=== PATIENT | female | born 1980 | race Caucasian/White ===

== ENCOUNTER → 2021-04-17 13:39 | Outpatient (CLI) | payer OTHER, SELFPAY ==
--- NOTE | ~2021-04-17 | XR_ITS ---
XR lumbar spine 2-3V DATE: 04/17/2021 14:04 INDICATION: Lumbar radiculopathy TECHNIQUE: AP, lateral, coned lateral lumbosacral views COMPARISON: None FINDINGS: There is slight levoscoliosis. No fracture or bone destruction. The lumbar pedicles are intact. There is mild loss of interspace hei ght at the mid and lower lumbar spine no spondylolisthesis. The sacroiliac joints are unremarkable. Status post cholecystectomy IMPRESSION: Slight levoscoliosis Mild degenerative disc disease Reviewed, dictated and finalized at location A.
== END ==
PROVIDERS: PCP Internal Medicine; Visit Provider Internal Medicine
DX: M54.16 Radiculopathy, lumbar region (principal); M51.36 Other intervertebral disc degeneration, lumbar region
CPT/HCPCS: 72100

== ENCOUNTER → 2022-02-09 08:14 | Outpatient (CLI) | payer OTHER, SELFPAY ==
--- NOTE | ~2022-02-09 | MM_ITS ---
EXAMINATION: MM diagnostic demar BI w corey HISTORY: Itching of the medial breasts TECHNIQUE: Craniocaudal, mediolateral, and mediolateral oblique 3-D tomosynthesis images of the breas ts were performed and synthetic 2-D images were generated. CAD analysis was submitted and interpreted . COMPARISON: 06/15/2019, 05/31/2019, 02/17/2015,01/30/2015 BREAST PARENCHYMAL COMPOSITION: The breasts are heterogeneously dense, which may obscure small masses . FINDINGS: There is no suspicious mass, calcification, or architectural distortion in either breast t o suggest malignancy. There has been no suspicious interval change. No mammographic correlate is sergei ntified for the reported itching of the breasts. IMPRESSION: 1. No specific mammographic correlate is identified for the itching of the patient's breasts. Further evaluation at this time should be based on clinical assessment. Continued follow-up physical examina tion is recommended. 2. Recommend routine screening mammography in one year. BI-RADS Category 1: Negative Reviewed, dictated and finalized at location A. IMPRESSION: 1. No specific mammographic correlate is identified for the itching of the simone ent's breasts. Further evaluation at this time should be based on clinical asse ssment. Continued follow-up physical examination is recommended. 2. Recommend routine screening mammography in one year. BI-RADS Category 1: Negative
== END ==
PROVIDERS: PCP Internal Medicine; Visit Provider Obstetrics & Gynecology Gynecology
DX: N64.59 Other signs and symptoms in breast (principal)
CPT/HCPCS: 77062; 77066; G0279

== ENCOUNTER → 2022-05-27 08:24 | Outpatient (CLI) | payer OTHER, SELFPAY ==
--- NOTE | ~2022-05-27 | CT_ITS ---
EXAMINATION: CT sinus wo con DATE: 05/27/2022 08:41 INDICATION: Sinusitis TECHNIQUE: Computed tomography (CT) of the paranasal sinuses was performed without intravenous contra st. The dose-length product was 265.85 mGy-cm. Automated exposure control and iterative reconstruction technique were employed. COMPARISON: CT dated 05/25/2012 FINDINGS: There is no significant mucosal thickening. No air-fluid levels. Rightward nasal septal dev iation. Ostiomeatal units are patent. Mastoids are pneumatized. IMPRESSION: 1. No significant sinus disease. Reviewed, dictated and finalized at location B.
== END ==
PROVIDERS: PCP Internal Medicine; Visit Provider Internal Medicine
DX: J34.89 Other specified disorders of nose and nasal sinuses (principal)
CPT/HCPCS: 70486

== ENCOUNTER → 2022-07-22 11:17 | Outpatient (CLI) | payer OTHER, SELFPAY ==
--- NOTE | ~2022-07-22 | MR_ITS ---
MRI of the lumbar spine Clinical History: Back pain Technique: Axial T2-weighted images, and sagittal T1-weighted, T2-weighted, and T2 fat-sat images wer e acquired. Findings: There is no fracture or subluxation of the lumbar spine. Vertebral bodies maintain normal h eight and alignment. No focal bone marrow signal abnormality seen. At L1-L2, there is no disc bulge or herniation. No spinal canal stenosis or neural foraminal narrowin g. At L2-L3, there is no disc bulge or herniation. No spinal canal stenosis or neural foraminal narrowin g. At L3-L4, there is minimal disc bulge. There is minimal facet joint degenerative change. There is min imal compression of the thecal sac at this level. Bilateral neural foramina are preserved. At L4-L5, there is minimal disc bulge with facet arthropathy. There is moderate to severe thecal sac compression. Right neural foramen is moderately narrowed. Left neural foramen preserved. At L5-S1, there is minimal disc bulge with mild facet arthropathy. No definite spinal canal stenosis or neural foraminal narrowing. Paravertebral soft tissues are unremarkable. Impression: Multifactorial moderate to severe thecal sac compression at L4-L5, with moderate right neural foramin al narrowing. Multifactorial minimal thecal sac compression at L3-L4. Reviewed, dictated and finalized at location . [facility] Impression: Multifactorial moderate to severe thecal sac compression at L4-L5, with moderat e right neural foraminal narrowing. Multifactorial minimal thecal sac compression at L3-L4.
== END ==
PROVIDERS: PCP Internal Medicine; Visit Provider Internal Medicine
DX: M54.50 Low back pain, unspecified (principal); M48.56XA Collapsed vertebra, not elsewhere classified, lumbar region, initial encounter for fracture
CPT/HCPCS: 72148

== ENCOUNTER 2024-09-29 11:56 | Outpatient (CLI) | payer OTHER, SELFPAY | END 2024-09-29 11:57 | disposition home or self-care (01) | PROVIDERS: PCP Nurse Practitioner; Visit Provider Nurse Practitioner | DX: M54.41 Lumbago with sciatica, right side (principal); M47.896 Other spondylosis, lumbar region; G89.29 Other chronic pain; M79.645 Pain in left finger(s) | CPT/HCPCS: 72100; 73130 ==

== ENCOUNTER 2025-02-27 13:32 | Outpatient (CLI) | payer OTHER, SELFPAY ==
--- NOTE | ~2025-02-27 | MM_ITS ---
EXAMINATION: MM screening demar BI w corey HISTORY: Screening TECHNIQUE: Craniocaudal and mediolateral oblique 3-D tomosynthesis images were obtained and synthetic 2-D images were generated. CAD analysis was submitted and interpreted. COMPARISON: Comparison to multiple prior studies sequentially, with oldest reviewed study dated 05/03. BREAST PARENCHYMAL COMPOSITION: Dense: The breasts are heterogeneously dense, which may obscure small masses FINDINGS: There is no evidence of suspicious mass, calcification, or architectural distortion to sugg est malignancy in either breast. There has been no suspicious interval change. IMPRESSION: 1. No mammographic evidence of malignancy. 2. Recommend routine screening mammography in one year. BI-RADS Category 1: Negative Reviewed, dictated and finalized at location B.
== END 2025-02-27 13:33 | disposition home or self-care (01) ==
PROVIDERS: PCP Nurse Practitioner; Visit Provider Obstetrics & Gynecology Gynecology
DX: Z12.31 Encounter for screening mammogram for malignant neoplasm of breast (principal)
CPT/HCPCS: 77063; 77067